=== PATIENT | female | born 2005 | race Two or more races ===

== ENCOUNTER → 2025-04-08 09:09 | Outpatient (CLI) | payer OTHER | END | disposition home or self-care (01) | LOC: PRENATAL 09:09 | PROVIDERS: ATTEND Obstetrics & Gynecology Maternal & Fetal Medicine | DX: O36.80X0 Pregnancy with inconclusive fetal viability, not applicable or unspecified (principal); Z36.82 Encounter for antenatal screening for nuchal translucency; Z14.8 Genetic carrier of other disease; Z3A.13 13 weeks gestation of pregnancy ==

== ENCOUNTER 2025-05-29 14:38 | Outpatient (CLI) | payer OTHER | END 2025-05-29 14:39 | disposition home or self-care (01) | LOC: PRENATAL 14:38 | PROVIDERS: ATTEND Obstetrics & Gynecology Maternal & Fetal Medicine | DX: O44.02 Complete placenta previa NOS or without hemorrhage, second trimester (principal); Z3A.20 20 weeks gestation of pregnancy ==